=== PATIENT | male | born 1975 | race Caucasian/White ===

== ENCOUNTER 2025-03-10 17:51 | Emergency (ER) | payer OTHER, SELFPAY ==
[2025-03-10 17:53] VITALS: BP 159/100
[2025-03-10 18:04] VITALS: BMI 38.6
[2025-03-10 18:07] VITALS: BP 128/84
--- NOTE | 2025-03-10 18:15 | ED.GENMED ---
History of Present Illness
General
Chief Complaint: Skin Surface Trauma
Time Seen by Provider: 03/10/25 18:03
History of Present Illness
History of Present Illness:
49-year-old male presents to the emergency department for evaluation of a right posterior lower leg laceration sustained when a sharp piece of metal fell and struck him in the leg. He is able to ambulate. Last tetanus is within the past 5 years
per patient
Review of Systems
Review of Systems
Allergies reviewed?: Yes
All Other Systems: ROS reviewed and negative except as documented in HPI and ROS
Phy Exam
Physical Exam
Physical Exam:
GEN: Well appearing, NAD, WDWN
HEENT: Oral mucosa moist, no scleral icterus
Cardiac: Regular rate
Lung: No respiratory distress, no tachypnea
MSK: No gross deformity or injuries
Skin: Good color, no pallor or jaundice, no rashes. 5 cm V-shaped laceration to the distal right calf, no evidence for Achilles tendon injury, negative Reyes test
Neuro: AO x3, moves all extremities freely
Psych: Calm, cooperative
Course
Vital Signs
Initial and Last Documented VS:
Initial Vital Signs
Temp Pulse Resp BP Pulse Ox
97.9 F 96 18 159/100 98
03/10/25 17:53 03/10/25 17:53 03/10/25 17:53 03/10/25 17:53 03/10/25 17:53
Last Documented Vital Signs
Temp Pulse Resp BP Pulse Ox
97.9 F 88 18 128/84 99
03/10/25 17:53 03/10/25 18:07 03/10/25 18:07 03/10/25 18:07 03/10/25 18:15
Procedures
Laceration Closure
Right lower leg:
Status of Wound: clean
Size of Wound in cm: 5
Description of Wound Edges: sharp
Preparation: cleaned with saline
Anesthesia: 1% Lidocaine with epi
Revision/Debridement: irrigate-direct pressure
Type of Closure: single layer closure
Skin Closure Material: 4-0 nylon
Number of sutures: 8
MDM/Problems Addressed
MDM/Problems Addressed:
No clinical evidence of Achilles tendon injury, wound closed at the bedside
*Pulse Oximetry
SaO2: 99
Oxygen Mode of Delivery: Room air
Patient hypoxic: no
*Critical Care Note
Total Time (30-74mins, 75-104mins- exclusive of procedures): Not Applicable
ED Attending Note
-
Portions of this chart may have been created with voice recognition software.� Occasional wrong word or��sound alike� substitutions may have occurred due to the inherent limitations of voice recognition software.
Discharge Plan
Departure
Patient Disposition: Home (Routine Discharge)
Date of Disposition: 03/10/25
Time of Disposition: 18:42
Patient with high blood pressure during this ER visit?: No
Discharge Problem:
Laceration of right calf
Instructions: Laceration Repair With Stitches (DC)
Referrals:
NONE,* [Family Provider, Internal Medicine]
Activity Restrictions/Additional Instructions:
Keep wound dry for 24 hours then wash gently with soap and water each day
Use the dalia bandage daily for 1 week to minimize tension across the wound
Follow up with primary doctor or urgent care in 10-14 days for suture removal
Interventions
Interventions:
*Risk Screen - Suicide Last Done: 03/10/25 17:53
*General Assessment Last Done: 03/10/25 17:53
*Neglect/Abuse Screening Last Done: 03/10/25 17:53
*ED- Fall Risk Assessment Last Done: 03/10/25 18:05
*ED COVID-19 Vaccine History Last Done: 03/10/25 17:56
*Nursing Disposition Last Done: 03/10/25 18:48
ED-Skin Assessment Last Done: 03/10/25 18:05
Discharge Date and Time
Discharge Date/Time: 03/10/25 18:51
Print Language: IRISH
== END 2025-03-10 18:51 | disposition home or self-care (01) ==
LOC: EMR 17:51
PROVIDERS: EMERGENCY PHYSICIAN Emergency Medicine
DX: S81.811A Laceration without foreign body, right lower leg, initial encounter (principal); W26.8XXA Contact with other sharp object(s), not elsewhere classified, initial encounter
CPT/HCPCS: 99282; 12002